=== PATIENT | male | born 1945 | race Caucasian/White ===

== ENCOUNTER 2017-01-29 07:34 | Day surgery (SDC) | payer MEDICARE, OTHER ==
--- NOTE | ~2017-01-29 | EGD ---
EGD REPORT [facility] [address] [id number] NAME: GABRIEL ZEPEDA : [birth year] STATUS : REG [facility]#: [id number] AGE: 71 ADM/REG DATE : 01/29/17 MR#: [id number] REPORT SERV DATE: 01/29/17 DICTATED BY: RONNA LANE DATE: 01/29/17 REPORT STATUS : Draft TRANSCRIBED BY: [facility] DATE: 01/29/17 Endoscopy Center Patient Name: Gabriel Zepeda Date of : 1945 Attending MD: RONNA LANE MD Procedure Date No Time: 01/29/2017 Procedure: Colonoscopy Indications: Personal history of malignant neoplasm of the colon Referring MD: JUANITO JONES MD Medicines: as per anesthesia Complications: No immediate complications. Procedure: Pre-Anesthesia Assessment: - ASA Grade Assessment: III - A patient with severe systemic disease. After I obtained informed consent, the scope was passed under direct vision. Throughout the procedure, the patient's blood pressure, pulse, and oxygen saturations were monitored continuously. The PCF [id number] was introduced through the anus and advanced to the ileocolonic anastomosis. The colonoscopy was performed without difficulty. The patient tolerated the procedure. The quality of the bowel preparation was adequate to identify polyps. Findings: The perianal and digital rectal examinations were normal. There was evidence of a prior end-to-side ileo-colonic anastomosis in the transverse colon. This was patent. This was characterized by healthy appearing mucosa. Two sessile polyps were found in the transverse colon. The polyps were 3 to 4 mm in size. These polyps were removed with a cold biopsy forceps. Resection and retrieval were complete. A sessile polyp was found in the sigmoid colon. The polyp was 4 mm in size. The polyp was removed with a cold biopsy forceps. Resection and retrieval were complete. A few small and large-mouthed diverticula were found in the sigmoid colon. Internal hemorrhoids were found during endoscopy and were mild. Impression: - Patent end-to-side ileo-colonic anastomosis. - Two 3 to 4 mm polyps in the transverse colon. Resected and retrieved. - One 4 mm polyp in the sigmoid colon. Resected and retrieved. - Diverticulosis in the sigmoid colon. EGD REPORT [address] [address] NAME: GABRIEL ZEPEDA : [birth year] STATUS : REG [facility] [place] PAT#: [id number] AGE: 71 ADM/REG DATE : 01/29/17 MR#: [id number] REPORT SERV DATE: 01/29/17 DICTATED BY: RONNA LANE DATE: 01/29/17 REPORT STATUS : Draft TRANSCRIBED BY: [employer] DATE: 01/29/17 - Internal hemorrhoids. Recommendation: - Await pathology results. - Repeat colonoscopy for surveillance based on pathology results. Procedure Code(s): --- Professional --- 56604, Colonoscopy, flexible, proximal to splenic flexure; with biopsy, single or multiple Diagnosis Code(s): --- Professional --- Z98.0, Intestinal bypass and anastomosis status D12.5, Benign neoplasm of sigmoid colon D12.3, Benign neoplasm of transverse colon K64.8, Other hemorrhoids K57.30, Diverticulosis of large intestine without perforation or abscess without bleeding Z85.038, Personal history of other malignant neoplasm of large intestine CPT copyright 2013 [employer]. All rights reserved. The codes documented in this report are preliminary and upon auto body service mechanic review may be revised to meet current compliance requirements. RONNA LANE MD 01/29/2017 10:17 AM This report has been signed electronically. Number of Addenda: 0 Note Initiated On: 01/29/2017 9:41 AM Scope Withdrawal Time 0 hours 8 minutes 51 seconds [id number] [place] [id number]
[~2017-01-29 07:34] MED LIST: ASA5GR PO; ASAB PO; ASABAYER PO; ATEN100 PO; AVAPRO300 MG PO; COZAAR100 MG PO; GLUCXL10 PO; IRON PO; JANUVIA100 MG PO; LIPITOR10 PO; LOZOLTAB PO; MEDS; NAP500 PO; NORV10 PO; TOPXL100 PO; VOLT75 PO
== END 2017-01-29 23:59 | disposition home or self-care (01) ==
LOC: DMU 07:34
PROVIDERS: Internal Medicine Gastroenterology
PROC: 0DBN8ZZ Excision of Sigmoid Colon, Via Natural or Artificial Opening Endoscopic (ICD-10-PCS; 2017-01-29)
PROC: 0DBL8ZZ Excision of Transverse Colon, Via Natural or Artificial Opening Endoscopic (ICD-10-PCS; principal; 2017-01-29 09:00)
DX: D12.3 Benign neoplasm of transverse colon (principal); D12.5 Benign neoplasm of sigmoid colon; K64.8 Other hemorrhoids; K57.30 Diverticulosis of large intestine without perforation or abscess without bleeding; Z85.038 Personal history of other malignant neoplasm of large intestine; Z98.0 Intestinal bypass and anastomosis status; I10 Essential (primary) hypertension; G47.33 Obstructive sleep apnea (adult) (pediatric); E11.9 Type 2 diabetes mellitus without complications; E66.9 Obesity, unspecified; Z88.2 Allergy status to sulfonamides; Z79.899 Other long term (current) drug therapy; Z79.82 Long term (current) use of aspirin
CPT/HCPCS: 82962; 88305